=== PATIENT | male | born 1995 | race Two or more races ===

== ENCOUNTER 2019-02-01 22:49 | Emergency (ER) | payer OTHER ==
[~2019-02-01] VITALS: Ht 175.3 cm; Wt 85.7 kg
--- NOTE | 2019-02-02 00:31 | NUR ---
pt ok to dsicharge per dr Reyes. Patient discharged in custody of [employer] in stable condition. Written and verbal after care instructions given. Patient verbalizes understanding of instruction.
[2019-02-02] MEDS ORDERED: ONDANSETRON 4 MG TAB.RAPDIS ONE (00:35)
[2019-02-02 00:40] VITALS: BP 149/80
[2019-02-02] MEDS ORDERED: ONDANSETRON 4 MG TAB.RAPDIS SL ONE (01:00)
== END 2019-02-02 00:40 ==
LOC: ER 22:53
DX: F10.229 Alcohol dependence with intoxication, unspecified (principal); I10 Essential (primary) hypertension; E11.9 Type 2 diabetes mellitus without complications; Y90.9 Presence of alcohol in blood, level not specified
CPT/HCPCS: 99283; Q0162